=== PATIENT | male | born 1965 | race Caucasian/White ===

== ENCOUNTER → 2016-11-15 | Outpatient (REF) | payer OTHER | LOC: M SFHCLERA 11:36 | PROVIDERS: ATTEND Nurse Practitioner Family | DX: J02.9 Acute pharyngitis, unspecified (principal) ==

== ENCOUNTER → 2017-02-18 | Outpatient (REF) ==
--- NOTE | 2017-02-18 16:33 | REP ---
BILATERAL HIPS: AP and frogleg views of bilateral hips performed. There is no acute fracture or dislocation. There is a bone island in the right femoral neck which is stable compared to prior radiographs from [facility] dated 05/21/2006. There is minor joint space narrowing with subchondral sclerosis at both hip joints. The findings are essentially unchanged compared to the prior exam. IMPRESSION: Minor degenerative changes bilateral hips. Signed by Chace Reyes MD 02/19/2017 04:31 P
--- NOTE | 2017-02-18 16:33 | REP ---
LUMBOSACRAL SPINE: Five views of the lumbosacral spine are performed. There is no fracture or dislocation. Vertebral height is normal and are aligned with normal lumbar lordosis. There is no spondylolysis or spondylolisthesis. Disc spaces are relatively well preserved. Posterior elements are intact. IMPRESSION: Essentially unremarkable lumbosacral spine series. Signed by Chace Reyes MD 02/19/2017 04:31 P
== END ==
LOC: M RAD 15:15
PROVIDERS: ATTEND Internal Medicine
DX: M54.5 Low back pain (principal)

== ENCOUNTER → 2021-09-10 | Outpatient (CLI) | payer OTHER ==
[~2021-09-10] MED LIST: ALLO100T PO; CETI10CH PO; ERGO500029 PO; FLON1SPR; OMEP1CAP73 PO; ROSU40TA4 PO; XALA0.007 OU; anti-inflammatory PO
== END ==
LOC: M LABSMTC 10:34
PROVIDERS: ATTEND Anesthesiology
DX: Z01.818 Encounter for other preprocedural examination (principal); Z11.52 Encounter for screening for COVID-19

== ENCOUNTER 2021-09-12 08:58 | Day surgery (SDC) | payer OTHER ==
[~2021-09-12] VITALS: Ht 170.2 cm; Wt 116.6 kg
[~2021-09-12 08:58] MED LIST changes: +NS 1,000 ML IV ONE
[2021-09-12] MEDS ORDERED: propofoL 500 MG/50 ML VIAL As Ordered ONE (09:16)
[2021-09-12] MEDS ORDERED: LIDOCAINE 2% 100MG/5ML SDV (FOR ANES.) As Ordered ONE (09:16)
[2021-09-12] MEDS ORDERED: fentaNYL 100 MCG/2 ML INJECTION As Ordered ONE (09:16)
== END 2021-09-12 10:48 | disposition home or self-care (01) ==
LOC: M OPP 08:58
PROVIDERS: ATTEND Internal Medicine Gastroenterology
DX: Z12.11 Encounter for screening for malignant neoplasm of colon (principal); K63.5 Polyp of colon; K57.30 Diverticulosis of large intestine without perforation or abscess without bleeding; K64.0 First degree hemorrhoids; K44.9 Diaphragmatic hernia without obstruction or gangrene; K22.89 Other specified disease of esophagus; R12 Heartburn; Z79.82 Long term (current) use of aspirin; Z79.899 Other long term (current) drug therapy
CPT/HCPCS: 43239; 45385; 88305; J3010